=== PATIENT | male | born 1990 | race Two or more races ===

== ENCOUNTER 2025-08-13 18:41 | Emergency (ER) | payer MEDICAID, OTHER ==
[~2025-08-13] VITALS: Ht 180.3 cm; Wt 96.0 kg
--- NOTE | 2025-08-13 19:40 | DVH ---
Exam: CT CT AB PEL WO CON-NO ORAL OR IV History: LLQ PAIN Comparison Study: None TECHNIQUE: Multidetector CT of the abdomen and pelvis was performed from lung bases to pubic symphysi s. Imaging was performed without IV contrast. Axial, coronal, and sagittal multiplanar reformats were obtained from the axial data set by the technologist. RADIATION DOSE: CTDI vol 10.96 mGy. DLP 678.7 mGy.cm Findings: Limited evaluation of the solid organs in the absence of IV contrast. Lungs: The lung bases are clear. Liver: Unremarkable. Spleen: Unremarkable. Pancreas: Unremarkable. Gallbladder: Unremarkable. Adrenals: Unremarkable Kidneys: Unremarkable. Pelvic Viscera: Unremarkable. Vasculature: Unremarkable. Retroperitoneum: Unremarkable. Bowel: There is no bowel obstruction. The appendix is normal. There is colonic diverticulosis. Porti ons of the bowel are decompressed, limiting assessment, though there is suggestion of wall thickening about the distal descending colon. Musculoskeletal: Unremarkable. Soft tissues: Unremarkable Impression: 1. Portions of the bowel are decompressed, limiting assessment, though there is suggestion of wall th ickening about the distal descending colon which may reflect a colitis in the appropriate clinical se tting. A posttreatment follow-up is suggested to ensure appropriate resolution.
--- NOTE | 2025-08-13 19:50 | ED.PDOC ---
GI ASSESSMENT HPI Comments This is a 34 year old male presenting to the ED with chief complaint of lower quadrant abdominal pain. Patient reports that he had been pushing trash bins at work earlier today when he suddenly felt a sharp pain in his LLQ abdomen. Patient relays that he is now experiencing worsening pain with pushing and pulling movements, as well as when palpating the left lower quadrant abdominal wall. Patient states he was advised by occupational clinic to come into the ED to receive a CT scan for further evaluation. Patient denies any nausea, vomiting, fever, back pain, or further injury at this time. He does note intermittent diarrhea for the last 2 weeks, last episode was yesterday. Chief Complaint: Abdominal Pain Time Seen by MD: 19:48 Reviewed Notes: Nurses Notes, Medications, Allergies Allergies: Coded Allergies: NO KNOWN ALLERGIES (Unverified , 08/13/25) Home Meds Active Scripts Ibuprofen Micronized (Ibuprofen) 800 Mg Tab, 800 MG PO Q8HP PRN, #30 TAB prn pain. take with food. Prov:IVAN PEREZ MD 08/13/25 Information Source: Patient Mode of Arrival: Ambulatory Timing: Hours Duration: Since onset Prehospital treatment: None Quality: Sharp Vomitus: None Stool: Normal Severity: Moderate Recent: None Recent Hx of: None Pain Location: LLQ Modifying Factors: Nothing Associated sign and symptoms: Abdominal Pain Past Medical History PAST MEDICAL HISTORY: Denies Surgical History: Denies all surgeries Family History Family History: Reviewed,noncontributory to illness Social History Lives In: Home Constitutional: denies: chills, diaphoresis, fatigue, fever, malaise, sweats, weakness, others EENTM: denies: blurred vision, double vision, ear bleeding, ear discharge, ear drainage, ear pain, ear ringing, eye pain, eye redness, hearing loss, mouth pain, mouth swelling, nasal discharge, nose bleeding, nose congestion, nose pain, photophobia, tearing, throat pain, throat swelling, voice changes, others Respiratory: denies: cough, hemoptysis, orthopnea, SOB at rest, shortness of breath, SOB with excertion, stridor, wheezing, others Cardiovascular: denies: chest pain, dizzy spells, diaphoresis, Dyspnea on exert ion, edema, irregular heart beat, left arm pain, lightheadedness, palpitations, PND, syncope, others Gastrointestinal: reports: abdominal pain, diarrhea; denies: abdomen distended, blood streaked bowels, constipated, dysphagia, difficulty swallowing, hematemesis, melena, nausea, poor appetite, poor fluid intake, rectal bleeding, rectal pain, vomiting, others Genitourinary: denies: burning, dysuria, flank pain, frequency, hematuria, incontinence, penile discharge, penile sore, pain, testicle pain, testicle swelling, urgency, others Neurological: denies: dizziness, fainting, headache, left sided numbness, left sided weakness, numbness, paresthesia, pre-existing deficit, right sided numbness, right sided weakness, seizure, speech problems, tingling, tremors, weakness, others Musculoskeletal: denies: back pain, gout, joint pain, joint swelling, muscle pain, muscle stiffness, neck pain, others Integumetry: denies: bruises, change in color, change in hair/nails, dryness, laceration, lesions, lumps, rash, wounds, others Allergic/Immunocompromised: denies: Difficulty Healing, Frequent Infections, Hives, Itching, others Hematologic/Lymphatic: denies: anemia, blood clots, easy bleeding, easy bruising, swollen glands, others Endocrine: denies: excessive hunger, excessive sweating, excessive thirst, excessive urination, flushing, intolerance to cold, intolerance to heat, unexplained weight gain, unexplained weight loss, others Psychiatric: denies: anxiety, bipolar disorder, depression, hopeless, panic disorder, schizophrenia, sleepless, suicidal, others All Other Systems: Reviewed and Negative Physical Exam General Appearance: No Apparent Distress HEENT: Other (Pupils and face symmetric. Moist mucous membranes.) Neck: Full Range of Motion, Normal Inspection Respiratory: Lungs Clear, No Accessory Muscle Use, No Respiratory Distress, Normal Breath Sounds Cardiovascular: No Edema, No JVD, Regular Rate/Rhythm Breast Exam: Deferred Gastrointestinal: Soft, Tenderness (Localized left lower quadrant abdominal wall soft tissue tenderness/muscle spasm. No mass appreciated.) Genitalia: Deferred Pelvic: Deferred Rectal: Deferred Extremities: Normal inspection, Normal range of motion, Non-tender, No pedal edema Neurologic: Alert (Oriented x4), Normal Affect, Normal Mood, Other (Ambulatory) Cerebellar Function: NOT DONE Reflexes: NOT DONE Skin: Dry, Normal Color, Warm Lymphatic: NOT DONE Was a procedure done? Was a procedure done?: No GI differential Dx Differential Diagnosis: Constipation, Diverticular disease, Hernia, Inflammatory BD, UTI, Urolithiasis, Electrolyte Imbalance, Food Poisoning, Bacterial, Viral Other Differential Diagnosis Abdominal wall strain/muscle spasm, hernia, colitis, among others X-Ray, Labs, Meds, VS Vital Signs Date Time Temp Pulse Resp B/P (MAP) Pulse Ox O2 Delivery O2 Flow Rate FiO2 08/13/25 18:43 97.8 89 18 125/68 96 97.8 Lab Test 08/13/25 19:40 Range/Units White Blood Count 9.8 4.4-10.8 10^3/uL Red Blood Count 5.43 4.5-5.90 10^6/uL Hemoglobin 16.5 13.5-17.5 g/dL Hematocrit 48.6 41.0-53.0 % Mean Corpuscular Volume 89.5 80.0-100.0 fL Mean Corpuscular Hemoglobin 30.4 28.0-32.0 pg Mean Corpuscular Hemoglobin Concent 34.0 32.0-36.0 g/dL Red Cell Distribution Width 13.6 11.8-14.3 % Platelet Count 265 140-450 10^3/uL Mean Platelet Volume 8.1 6.9-10.8 fL Neutrophils (%) (Auto) 55.5 37.0-80.0 % Lymphocytes (%) (Auto) 26.5 10.0-50.0 % Monocytes (%) (Auto) 7.6 0.0-12.0 % Eosinophils (%) (Auto) 9.9 H 0.0-7.0 % Basophils (%) (Auto) 0.5 0.0-2.0 % Neutrophils # (Auto) 5.5 1.6-8.6 10 ^3/uL Lymphocytes # (Auto) 2.6 0.4-5.4 10 ^3/uL Monocytes # (Auto) 0.7 0-1.3 10 ^3/uL Eosinophils # (Auto) 1.0 H 0-0.8 10 ^3/uL Basophils # (Auto) 0 0-0.2 10 ^3/uL Nucleated Red Blood Cells 0.0 % Sodium Level 138 136-145 mmol/L Potassium Level 4.0 3.5-5.1 mmol/L Chloride Level 103 98-107 mmol/L Carbon Dioxide Level 25 20-31 mmol/L Anion Gap 10 5-15 Blood Urea Nitrogen 8 L 9-23 mg/dL Creatinine 1.06 0.700-1.30 mg/dL Glomerular Filtration Rate Calc 95 >90 mL/min BUN/Creatinine Ratio 7.5 L 10.0-20.0 Serum Glucose 74 74-106 mg/dL Lactic Acid Level 0.9 0.4-2.0 mmol/L Calcium Level 9.2 8.7-10.4 mg/dL Total Bilirubin 0.6 0.2-1.0 mg/dL Aspartate Amino Transferase (AST) 21 13-40 U/L Alanine Aminotransferase (ALT) 23 7-40 U/L Alkaline Phosphatase 92 46-116 U/L Total Protein 7.7 5.7-8.2 g/dL Albumin 4.6 3.2-4.8 g/dL Lipase 46 12-53 U/L [place] [address] Ph: [phone] DIAGNOSTIC IMAGING Diagnostic Imaging Report : [id number] Signed PATIENT: TAMI WADECCT: [id number] UNIT: [id number] : 1990 LOC: ER ROOM / BED: / AGE / SEX: 34 / M ADM STATUS: REG ER SERVICE 01 ORDERING PHYSICIAN: IVAN PEREZ MD PROCEDURE(s): ABPL - CT AB PEL WO CON-NO ORAL OR IV REASON: LLQ PAIN ORDER NUMBER(s): [id number], ACCESSION NUMBER(s): [id number] Exam: CT CT AB PEL WO CON-NO ORAL OR IV History: LLQ PAIN Comparison Study: None TECHNIQUE: Multidetector CT of the abdomen and pelvis was performed from lung bases to pubic symphysis. Imaging was performed without IV contrast. Axial, coronal, and sagittal multiplanar reformats were obtained from the axial data set by the technologist. RADIATION DOSE: CTDI vol 10.96 mGy. DLP 678.7 mGy.cm Findings: Limited evaluation of the solid organs in the absence of IV contrast. Lungs: The lung bases are clear. Liver: Unremarkable. Spleen: Unremarkable. Pancreas: Unremarkable. Gallbladder: Unremarkable. Adrenals: Unremarkable Kidneys: Unremarkable. Pelvic Viscera: Unremarkable. Vasculature: Unremarkable. Retroperitoneum: Unremarkable. Bowel: There is no bowel obstruction. The appendix is normal. There is colonic diverticulosis. Portions of the bowel are decompressed, limiting assessment, though there is suggestion of wall thickening about the distal descending colon. Musculoskeletal: Unremarkable. Soft tissues: Unremarkable Impression: 1. Portions of the bowel are decompressed, limiting assessment, though there is suggestion of wall thickening about the distal descending colon which may reflect a colitis in the appropriate clinical setting. A posttreatment follow-up is suggested to ensure appropriate resolution. X-Ray, Labs, Meds, VS Comment 34-year-old male with no significant past medical history complaining of left lower quadrant abdominal wall pain, onset while pushing trash cans at work Vitals unremarkable Exam remarkable for localized left lower quadrant abdominal wall soft tissue tenderness/muscle spasm. No appreciable mass. Rhythm strip independently interpreted by me: Sinus rhythm, rate 89, no ectopy. CT abdomen and pelvis: Impression: 1. Portions of the bowel are decompressed, limiting assessment, though there is suggestion of wall thickening about the distal descending colon which may reflect a colitis in the appropriate clinical setting. A posttreatment follow-up is suggested to ensure appropriate resolution. CBC, CMP, lipase and lactate unremarkable. UA pending. Patient treated with the following in the ED: Tylenol 1 g p.o. On re-evaluation at 9:14 p.m.. Patient still has not been medicated, but he appears comfortable and only has pain with palpation of the left lower quadrant abdominal wall at rest. Patient does report intermittent diarrhea, so colitis is a possibility. Patient's symptoms could also be muscular in origin. He appears stable for discharge with close outpatient follow-up with the his primary doctor or [facility] care provider. Rx Tylenol, omeprazole, Cipro, Flagyl Time of 1ST Reevaluation: 20:48 Reevaluation 1ST: Unchanged Patient Education/Counseling: Diagnosis, Treatment Family Education/Counseling: No Family Present SEPSIS Sepsis Screen Date sepsis recognized/suspect: Aug 13, 2025 Time Sepsis recognized/suspect: 1842 Recent Procedure: No On Antibiotic Therapy: No Respiratory Rate >20: No Heart Rate >90: No Temp<36 C (96.8 F) or >38.3 C: No SBP <90 or MAP <65 mmHG: No New Acute Mental Status Change: No Is the patient on CPAP, BIPAP,: No Physician Orders Urinalysis (08/13/25 19:02) Ct Ab Pel Wo Con-No Oral Or Iv (08/13/25 19:02) Blood Culture (08/13/25 19:02) Vital Signs Date Time Temp Pulse Resp B/P (MAP) Pulse Ox O2 Delivery O2 Flow Rate FiO2 08/13/25 18:43 97.8 89 18 125/68 96 97.8 Laboratory Tests Test 08/13/25 19:40 Lactic Acid Level 0.9 mmol/L (0.4-2.0) White Blood Count 9.8 10^3/uL (4.4-10.8) Departure 1 Departure Time of Disposition: 21:15 Impression: Primary Impression: Abdominal wall strain Qualified Codes: S39.011A - Strain of muscle, fascia and tendon of abdomen, initial encounter Additional Impression: Colitis Disposition: HOME / SELF CARE / HOMELESS Condition: Stable Additional Instructions: Your blood tests were unremarkable. Your CT scan was reported by the radiologist as showing possible colon wall thickening, which could represent colitis. I have provided the report below for you to show your primary doctor or occupational health care provider when you follow-up. Your symptoms may be due to an abdominal wall muscle strain and/or colitis. I have prescribed pain medication, acid reducers and antibiotics. Follow-up with your primary doctor or occupational health care provider in 1-2 days for re-evaluation. Return to ER for persistent or worsening symptoms. [place] [address] Ph: [phone] DIAGNOSTIC IMAGING Diagnostic Imaging Report : [id number] Signed PATIENT: LILY WADE ACCT: [id number] UNIT: [id number] : 1990 LOC: ER ROOM / BED: / AGE / SEX: 34 / M ADM STATUS: REG ER SERVICE 01 ORDERING PHYSICIAN: IVAN PEREZ MD PROCEDURE(s): ABPL - CT AB PEL WO CON-NO ORAL OR IV REASON: LLQ PAIN ORDER NUMBER(s): [id number], ACCESSION NUMBER(s): [id number] Exam: CT CT AB PEL WO CON-NO ORAL OR IV History: LLQ PAIN Comparison Study: None TECHNIQUE: Multidetector CT of the abdomen and pelvis was performed from lung bases to pubic symphysis. Imaging was performed without IV contrast. Axial, coronal, and sagittal multiplanar reformats were obtained from the axial data set by the technologist. RADIATION DOSE: CTDI vol 10.96 mGy. DLP 678.7 mGy.cm Findings: Limited evaluation of the solid organs in the absence of IV contrast. Lungs: The lung bases are clear. Liver: Unremarkable. Spleen: Unremarkable. Pancreas: Unremarkable. Gallbladder: Unremarkable. Adrenals: Unremarkable Kidneys: Unremarkable. Pelvic Viscera: Unremarkable. Vasculature: Unremarkable. Retroperitoneum: Unremarkable. Bowel: There is no bowel obstruction. The appendix is normal. There is colonic diverticulosis. Portions of the bowel are decompressed, limiting assessment, though there is suggestion of wall thickening about the distal descending colon. Musculoskeletal: Unremarkable. Soft tissues: Unremarkable Impression: 1. Portions of the bowel are decompressed, limiting assessment, though there is suggestion of wall thickening about the distal descending colon which may reflect a colitis in the appropriate clinical setting. A posttreatment follow-up is suggested to ensure appropriate resolution. ATED BY: ROMERO LOUIS MD DICTATED DATE/TIME: 08/13/251936 e-Prescriptions Acetaminophen (Tylenol Extra Strength) 500 Mg Tab 1000 MG PO Q6HP PRN, #30 TAB Prov: IVAN PEREZ MD 08/13/25 Omeprazole Magnesium (Omeprazole) 20 Mg Tab 20 MG PO DAILY, #30 TAB Prov: IVAN PEREZ MD 08/13/25 Metronidazole (Flagyl) 500 Mg Tab 1 TAB PO TID for 10 Days, #30 TAB Prov: IVAN PEREZ MD 08/13/25 Ciprofloxacin Hcl (Cipro) 500 Mg Tab 1 TAB PO BID for 10 Days, #20 TAB Prov: IVAN PEREZ MD 08/13/25 Discharged With: Self Critical Care Note Critical Care Time?: No Stability Stability form required: No Heart Score Heart Score: Heart Score Response (Comments) Value History N/A 0 EKG N/A 0 Age N/A 0 Risk Factors N/A 0 Troponin N/A 0 Total 0 I personally scribed for IVAN PEREZ MD ([email or web address]) on 08/13/25 at 19:50. Electronically submitted by Yosef Blanchard ([email or web address]). IVAN PEREZ MD Aug 13, 2025 19:50
[2025-08-13 20:00] LABS: Hematocrit 48.6 % (41.0-53.0); Hemoglobin 16.5 g/dL (13.5-17.5); Mean Corpuscular Hemoglobin 30.4 pg (28.0-32.0); Mean Corpuscular Volume 89.5 fL (80.0-100.0); Nucleated Red Blood Cells % 0.0 %
[2025-08-13 20:15] LABS: Alanine Aminotransferase 23 U/L (7-40); Albumin 4.6 g/dL (3.2-4.8); Alkaline Phosphatase 92 U/L (46-116); Anion Gap 10 (5-15); BUN/Creatinine Ratio 7.5 (10.0-20.0); Calcium 9.2 mg/dL (8.7-10.4); Carbon Dioxide 25 mmol/L (20-31); Chloride 103 mmol/L (98-107); Lipase 46 U/L (12-53); Potassium 4.0 mmol/L (3.5-5.1); Sodium 138 mmol/L (136-145); Total Protein 7.7 g/dL (5.7-8.2)
[2025-08-13 20:16] LABS: Bilirubin, Total 0.6 mg/dL (0.2-1.0); Blood Urea Nitrogen 8 mg/dL (9-23); Glucose 74 mg/dL (74-106)
[2025-08-13] MEDS ORDERED: IBUPROFEN 800 MG TAB PO ONE (21:15)
[2025-08-13] MEDS ORDERED: IBUP-1455 PO (21:19)
[2025-08-13] MEDS ORDERED: CIPR-173 PO (21:42)
[2025-08-13] MEDS ORDERED: OMEP-434 PO (21:42)
[2025-08-13] MEDS ORDERED: ACET-1304 PO (21:42)
[2025-08-13] MEDS ORDERED: METR-344 PO (21:42)
[2025-08-14] MEDS: ACETAMINOPHEN 500 MG TAB or CAP PO ONE (00:15)
[2025-08-14 00:18] VITALS: BP 119/79; PULSE 63; RESP 19; TEMP 98.3; O2SAT 98
== END 2025-08-14 00:44 | disposition home or self-care (01) ==
LOC: ER 18:41
DX: S39.011A Strain of muscle, fascia and tendon of abdomen, initial encounter (principal); K52.9 Noninfective gastroenteritis and colitis, unspecified; X58.XXXA Exposure to other specified factors, initial encounter; Y93.89 Activity, other specified; Y92.89 Other specified places as the place of occurrence of the external cause; Y99.8 Other external cause status
CPT/HCPCS: 36415; 74176; 80053; 83605; 83690; 85025; 87040